=== PATIENT | male | born 1955 | race Caucasian/White ===

== ENCOUNTER → 2024-05-01 | Outpatient (CLI) | payer OTHER, SELFPAY ==
[2024-05-01 13:38] LABS: Albumin, Serum 4.2 gm/dL (3.4-4.8); Anion Gap 7 (7-16); BUN/Creatinine Ratio 23 Ratio (12-20); Blood Urea Nitrogen 28 mg/dL (9-23); Calcium 10.4 mg/dL (8.3-10.6); Calcium (Corrected) 10.4 mg/dL (8.5-10.1); Carbon Dioxide 34.5 mMol/L (20.0-31.0); Chloride 94 mMol/L (98-107); Creatinine (Component) 1.2 mg/dL (0.6-1.3); Glucose 136 mg/dL (74-106); Magnesium 2.2 mg/dL (1.6-2.6); Osmolality,Calculated 277 (275-295); Potassium 3.6 mMol/L (3.4-5.1); Sodium 135 mMol/L (136-145); eGFR > 60 See Note
== END | disposition home or self-care (01) ==
LOC: COPL 12:04
PROVIDERS: PCP Family Medicine; Referring Provider Internal Medicine Cardiovascular Disease; Visit Provider Internal Medicine Cardiovascular Disease
DX: I50.32 Chronic diastolic (congestive) heart failure (principal)
CPT/HCPCS: 36415; 80069; 83735

== ENCOUNTER → 2024-05-15 | Outpatient (CLI) | payer OTHER, SELFPAY ==
[2024-05-15 13:58] LABS: Glucose Estimated Average 157 mg/dL (80-131); Hemoglobin A1C 7.1 % Hgb (4.8-6.0)
[2024-05-15 15:06] LABS: Creatinine MALB Rnd Ur 239 mg/dL (30-125)
[2024-05-15 15:07] LABS: Microalbumin Creat Ratio 955 mg/gCrea (<30); Microalbumin, Random Urine 2283 mg/L (0-300)
== END | disposition home or self-care (01) ==
LOC: SLAB 12:43
PROVIDERS: PCP Nurse Practitioner Family; Referring Provider Nurse Practitioner Family; Visit Provider Nurse Practitioner Family
DX: E11.21 Type 2 diabetes mellitus with diabetic nephropathy (principal)
CPT/HCPCS: 36415; 82043; 82570; 83036

== ENCOUNTER 2024-05-16 09:04 | Day surgery (SDC) | payer OTHER, SELFPAY ==
--- NOTE | 2024-05-15 00:01 | EKG_ITS ---
[facility] Test Date: 2024-05-15 Pat Name: GABI LOPES Department: Room: - Gender: Male [employer]: ADE : 1955 Requested By: Tucker Harrington Order Number: [id number] Reading MD: Tucker Harrington Measurements Intervals [place] Rate: 65 P: MD: QRS: -4 QRSD: 105 T: -75 QT: 435 QTc: 452 Interpretive Statements INCOMPLETE RIGHT BUNDLE BRANCH BLOCK ST DEVIATION AND MODERATE T-WAVE ABNORMALITY, CONSIDER LATERAL ISCHEMIA No previous ECG available for comparison [id number]
[2024-05-15 13:47] LABS: Basophils # (Auto) 0.1 Thou/mm3 (0.0-0.2); Basophils % (Auto) 1 % (0-2.5); Eosinophils # (Auto) 0.1 Thou/mm3 (0.0-0.5); Eosinophils % (Auto) 1 % (0-10); Hematocrit 43.8 % (41.0-53.0); Hemoglobin 14.4 g/dL (13.5-16.0); Immature Granulocytes % (Auto) 0 % (0-0); Immature Granulocytes Auto 0.01 Thou/mm3 (0.00-0.00); Lymphocytes # (Auto) 2.2 Thou/mm3 (1.0-4.8); Lymphocytes % (Auto) 27 % (10-50); Mean Corpuscular HGB Conc 32.9 g/dl (31.0-37.0); Mean Corpuscular Hemoglobin 33.7 pg (25.0-35.0); Mean Corpuscular Volume 103 fL (80-100); Monocytes # (Auto) 0.5 Thou/mm3 (0.0-0.8); Monocytes % (Auto) 6 % (0-12); Neutrophils # (Auto) 5.2 Thou/mm3 (1.8-7.7); Neutrophils % (Auto) 65 % (37-80); Nucleated Red Blood Cell % 0 /100 WBC (0); Platelet Count 146 Thou/mm3 (140-440); RDW Standard Deviation 51.7 fL (35.1-43.9); Red Blood Count 4.27 Miln/mm3 (4.50-5.90); White Blood Count 8.1 Thou/mm3 (3.8-10.6)
[2024-05-15 14:03] LABS: Anion Gap 7 (7-16); BUN/Creatinine Ratio 16 Ratio (12-20); Blood Urea Nitrogen 19 mg/dL (9-23); Carbon Dioxide 30.3 mMol/L (20.0-31.0); Chloride 106 mMol/L (98-107); Creatinine (Component) 1.2 mg/dL (0.6-1.3); Glucose 116 mg/dL (74-106); Osmolality,Calculated 288 (275-295); Potassium 3.7 mMol/L (3.4-5.1); Sodium 143 mMol/L (136-145); eGFR > 60 See Note
[2024-05-15 14:07] LABS: INR 1.1 (0.9-1.3); Partial Thromboplastin Time 26.4 Seconds (22.0-36.0); Prothrombin Time 11.7 Seconds (9.0-12.2)
[2024-05-16] VITALS (11 sets, daily range): BP systolic 119–151; BP diastolic 68–94; PULSE 35–58; RESP 16–17; TEMP 36.4–36.8; O2SAT 92–95; BMI 48.6
--- NOTE | 2024-05-16 15:14 | PC.NURSE ---
FEMORAL SHEATH (VENOUS ACCESS) TO THE RIGHT GROIN AREA REMOVED AT 1514. MANUAL PRESSURE APPLIED FOR ABOUT 21 MINUTES (15:35)( MINUTES UNTIL HEMOSTASIS ACHIEVED. PATIENT TOLERATED PROCEDURE WELL WITHOUT COMPLICATIONS.1 SURGICAL SITE ASYMPTOMATIC, NO ACTIVE BLEEDING, NO HEMATOMA NOTED ON RIGHT GROIN AREA. RIGHT FEMORAL PULSE NOTED WITH NO CHANGES IN STRENGHT AND QUALITY, RIGHT DORSALIS PEDIS PULSE NOTED WITH NO CHANGES STRENGHT AND QUALITY. DISTAL CAPPILARRY REFILL <3 SECONDS (Baseline, Right Toes). NO NOTED CHANGES IN COLOR OR TEMPERATURE ON RIGHT LOWER EXTREMITY. PATIENT DENIES GENERAL AND LOCALIZED PAIN. NO TINGLING OR NUMBNESS FELT TO RIGHT LOWER EXTREMITY. SURGICAL SITE COVERED WITH GAUZE AND TAGADERM DRESSING, WHICH REMAIN DRY AND INTACT. WILL CONTINUE TO MONITOR.
--- NOTE | 2024-05-16 17:20 | ESOP_ITS ---
RE: GABI LOPES : 1955 DATE OF OPERATION: 05/16/2024 PROCEDURE PERFORMED: 1. Diagnostic right and left heart cardiac catheterization, selective coronary angiogram, left ventricular angiogram, selective vein bypass angiogram, CPT 97919. 2. Selective cannulation of left internal mammary artery, left internal mammary angiogram, CPT 68208. 3. Conscious sedation, 40-minute duration. 4. Ultrasound-guided access of right femoral artery and femoral vein. 5. Iliofemoral angiogram followed by angioseal deployment. 6. Aortic root angiogram. DIAGNOSIS: Coronary artery disease, status post bypass graft surgery, ischemic cardiomyopathy, congestive heart failure, and abnormal nuclear stress test, recurrent angina. HISTORY AND INDICATIONS: The patient is a 69-year-old male with history of CAD status post bypass graft surgery more than 21 years ago, chronic atrial fibrillation, congestive heart failure, and a history of pulmonary emboli with increased right heart pressure, having significant shortness of breath on minimal exertion and chest tightness. Cardiac stress and nuclear scan is abnormal hence right and left heart cardiac catheterization, coronary angiogram, bypass graft angiogram recommended for further evaluation to determine if he is a candidate for PCI intervention. DESCRIPTION OF PROCEDURE: The patient was brought to cardiac catheterization lab where he was given conscious sedation 2 mg of Versed and 50 mcg of fentanyl. Right femoral approach was taken. Right femoral artery was cannulated by micropuncture technique and a 6-Yemeni sheath introduced. femoral vein was cannulated by ultrasound guidance as well and a 7-Yemeni sheath introduced. Right heart catheterization was performed with swan leanne 7 f catheter. Right heart pressure was measured. Left heart catheterization was performed with 5-Yemeni pigtail catheter. LV angiogram was performed subsequently, aortic root angiogram performed. Subsequently, selective right and left coronary angiogram performed using Pratik l catheter. Left coronary angiogram performed by JL5 diagnostic catheter. FR4_ diagnostic catheter was used to perform right coronary angiogram. LIMA_ diagnostic catheter was used to perform right coronary artery bypass graft angiogram, left coronary artery bypass graft angiogram. Subsequently, a ORTIZ 5-Yemeni catheter was used to cannulate the left mammary artery and ORTIZ angiogram performed. Subsequently, the catheter was used to perform right subclavian and internal mammary angiogram. Ileofemoral angiogram performed and AngioSeal was deployed successfully. The patient tolerated the procedure well, no complications. Cardiac catheterization showed following findings: The right heart pressure is as follows: RA pressure is elevated at 23 mmHg, RV pressure 41 systolic, 20 mmHg diastolic, EDP is 20, pulmonary artery wedge pressure mean 23 mmHg, V wave 31, A wave 23. Pulmonary artery pressure is 45/24, mean 30 mmHg. LV pressure is 100/22, EDP 25, aortic pressure 94/60, no gradient across the aortic valve. Left ventricular angiogram showed inferior_ hypokinesis ejection fraction of 45% to 50% with [id number] global hypokinesis. Coronary angiogram showed following findings: The right coronary artery is dominant, occluded after the RV branch mid segment, distal vessel is filling via collateral. There is also a large Rv branch_ branch. Left coronary system: Left main coronary artery is normal. Left anterior descending artery is occluded after the _ diagonal branch and first septal branch and extensive collaterals are giving from these branches. Circumflex artery gives of small obtuse marginal branch, but subsequently is totally occluded. There is a vein graft to the left circumflex artery distal vessel appears to be widely patent. Vein graft to the RCA is completely occluded. Left internal mammary artery not matured. It is completely occluded, not going to LAD. SUMMARY OF FINDINGS: 1. Ischemic cardiomyopathy mild to moderate LV dysfunction, EF of 45%. 2. Severe triple vessel coronary artery disease, total occlusion of the mid RCA, mid LAD and mid circumflex artery, extensive collateral network and left coronary system. Only one vein graft is patent. Vein graft to circumflex artery, distal circumflex artery is normal. ORTIZ to LAD did not mature and is not patent. RECOMMENDATIONS: The patient does have elevated right heart pressure. Recommend increasing diuretic therapy. The patient appears to have bradycardia with atrial fibrillation, recommended discontinuing atenolol since his heart rate is below 40s. Continue spironolactone 25 mg daily, Metolazone 5 mg daily, atorvastatin 20 mg daily, and also ARB and Entresto. Short-term prognosis is fair._ long-term prognosis is poor. The patient is not a candidate for further surgery or PCI intervention. cc: Tucker Cervantes MD DT: 15:27:06 TT: 16:55:00 Ref: [id number] - TID: [id number] MTDD
== END 2024-05-16 17:40 | disposition home or self-care (01) ==
PROVIDERS: PCP Family Medicine; Referring Provider Internal Medicine Cardiovascular Disease; Visit Provider Internal Medicine Cardiovascular Disease
PROC: (CPT 93461; principal; 2024-05-16 11:30)
DX: I25.118 Atherosclerotic heart disease of native coronary artery with other forms of angina pectoris (principal); I25.5 Ischemic cardiomyopathy; I25.82 Chronic total occlusion of coronary artery; I48.20 Chronic atrial fibrillation, unspecified; Z86.711 Personal history of pulmonary embolism; Z95.1 Presence of aortocoronary bypass graft; Z01.810 Encounter for preprocedural cardiovascular examination; I11.0 Hypertensive heart disease with heart failure; E78.5 Hyperlipidemia, unspecified; I50.32 Chronic diastolic (congestive) heart failure; I48.21 Permanent atrial fibrillation
CPT/HCPCS: 93461; 36216; G0278; 36415; 80048; 85025; 85610; 85730; 93005; 99152; 99153; A4649; C1769; J0171; J1643; J1940; J2250; J2310; J3010; J3490; Q9967; J1644

== ENCOUNTER → 2024-06-19 | Outpatient (CLI) | payer OTHER, SELFPAY ==
[2024-06-19 15:59] LABS: Albumin, Serum 4.2 gm/dL (3.4-4.8); Anion Gap 9 (7-16); BUN/Creatinine Ratio 16 Ratio (12-20); Blood Urea Nitrogen 23 mg/dL (9-23); Calcium 9.8 mg/dL (8.3-10.6); Calcium (Corrected) 9.8 mg/dL (8.5-10.1); Carbon Dioxide 33.2 mMol/L (20.0-31.0); Chloride 92 mMol/L (98-107); Creatinine (Component) 1.4 mg/dL (0.6-1.3); Glucose 118 mg/dL (74-106); Osmolality,Calculated 272 (275-295); Phosphorous 3.2 mg/dL (2.4-5.1); Potassium 3.6 mMol/L (3.4-5.1); Sodium 134 mMol/L (136-145); eGFR 54 See Note
== END | disposition home or self-care (01) ==
LOC: COPL 14:37
PROVIDERS: PCP Family Medicine; Referring Provider Internal Medicine Cardiovascular Disease; Visit Provider Internal Medicine Cardiovascular Disease
DX: I25.110 Atherosclerotic heart disease of native coronary artery with unstable angina pectoris (principal)
CPT/HCPCS: 36415; 80069

== ENCOUNTER → 2024-07-17 | Outpatient (CLI) | payer OTHER, SELFPAY ==
[2024-07-17 15:45] LABS: Anion Gap 9 (7-16); BUN/Creatinine Ratio 13 Ratio (12-20); Blood Urea Nitrogen 25 mg/dL (9-23); Calcium 9.6 mg/dL (8.3-10.6); Carbon Dioxide 32.4 mMol/L (20.0-31.0); Chloride 93 mMol/L (98-107); Creatinine (Component) 1.9 mg/dL (0.6-1.3); Glucose 117 mg/dL (74-106); Osmolality,Calculated 273 (275-295); Phosphorous 3.4 mg/dL (2.4-5.1); Potassium 3.8 mMol/L (3.4-5.1); Sodium 134 mMol/L (136-145); eGFR 37 See Note
[2024-07-17 15:46] LABS: Albumin, Serum 4.4 gm/dL (3.4-4.8); Calcium (Corrected) 9.6 mg/dL (8.5-10.1)
== END | disposition home or self-care (01) ==
LOC: COPL 14:08
PROVIDERS: PCP Family Medicine; Referring Provider Internal Medicine Cardiovascular Disease; Visit Provider Internal Medicine Cardiovascular Disease
DX: I89.0 Lymphedema, not elsewhere classified (principal); I11.9 Hypertensive heart disease without heart failure; I48.21 Permanent atrial fibrillation; Z95.1 Presence of aortocoronary bypass graft
CPT/HCPCS: 36415; 80069

== ENCOUNTER → 2024-08-17 | Outpatient (CLI) | payer OTHER, SELFPAY ==
[2024-08-17 10:38] LABS: Glucose Estimated Average 146 mg/dL (80-131); Hemoglobin A1C 6.7 % Hgb (4.8-6.0)
[2024-08-17 12:04] LABS: Creatinine MALB Rnd Ur > 245 mg/dL (30-125); Microalbumin Creat Ratio 53 mg/gCrea (<30); Microalbumin, Random Urine 132 mg/L (0-300)
== END | disposition home or self-care (01) ==
LOC: COPL 09:53
PROVIDERS: PCP Family Medicine; Referring Provider Nurse Practitioner Family; Visit Provider Nurse Practitioner Family
DX: E11.21 Type 2 diabetes mellitus with diabetic nephropathy (principal)
CPT/HCPCS: 36415; 82043; 82570; 83036

== ENCOUNTER → 2024-10-11 | Outpatient (CLI) | payer OTHER, SELFPAY ==
[2024-10-11 18:01] LABS: Albumin, Serum 4.1 gm/dL (3.4-4.8); Anion Gap 10 (7-16); BUN/Creatinine Ratio 13 Ratio (12-20); Blood Urea Nitrogen 16 mg/dL (9-23); Calcium 9.6 mg/dL (8.3-10.6); Calcium (Corrected) 9.6 mg/dL (8.5-10.1); Carbon Dioxide 32.9 mMol/L (20.0-31.0); Chloride 99 mMol/L (98-107); Creatinine (Component) 1.2 mg/dL (0.6-1.3); Glucose 128 mg/dL (74-106); Osmolality,Calculated 286 (275-295); Phosphorous 2.8 mg/dL (2.4-5.1); Potassium 3.3 mMol/L (3.4-5.1); Sodium 142 mMol/L (136-145); eGFR > 60 See Note
== END | disposition home or self-care (01) ==
LOC: COPL 16:15
PROVIDERS: PCP Family Medicine; Referring Provider Internal Medicine Cardiovascular Disease; Visit Provider Internal Medicine Cardiovascular Disease
DX: I50.32 Chronic diastolic (congestive) heart failure (principal)
CPT/HCPCS: 36415; 80069

== ENCOUNTER → 2024-12-20 | Outpatient (CLI) | payer OTHER, SELFPAY ==
[2024-12-20 09:41] LABS: Basophils # (Auto) 0.1 Thou/mm3 (0.0-0.2); Basophils % (Auto) 1 % (0-2.5); Eosinophils # (Auto) 0.1 Thou/mm3 (0.0-0.5); Eosinophils % (Auto) 1 % (0-10); Hematocrit 51.5 % (41.0-53.0); Hemoglobin 17.4 g/dL (13.5-16.0); Immature Granulocytes Auto 0.01 Thou/mm3 (0.00-0.00); Lymphocytes # (Auto) 2.0 Thou/mm3 (1.0-4.8); Lymphocytes % (Auto) 30 % (10-50); Mean Corpuscular HGB Conc 33.8 g/dl (31.0-37.0); Mean Corpuscular Hemoglobin 32.2 pg (25.0-35.0); Mean Corpuscular Volume 95 fL (80-100); Monocytes # (Auto) 0.4 Thou/mm3 (0.0-0.8); Monocytes % (Auto) 6 % (0-12); Neutrophils # (Auto) 4.0 Thou/mm3 (1.8-7.7); Neutrophils % (Auto) 61 % (37-80); Nucleated Red Blood Cell # 0.00 Thou/mm3 (0.00-0.00); Nucleated Red Blood Cell % 0 /100 WBC (0); Platelet Count 156 Thou/mm3 (140-440); RDW Standard Deviation 49.6 fL (35.1-43.9); Red Blood Count 5.41 Miln/mm3 (4.50-5.90); White Blood Count 6.6 Thou/mm3 (3.8-10.6)
[2024-12-20 09:54] LABS: Glucose Estimated Average 160 mg/dL (80-131); Hemoglobin A1C 7.2 % Hgb (4.8-6.0)
[2024-12-20 10:03] LABS: Prostate Specific Antigen 0.27 ng/mL (0-4.00)
[2024-12-20 10:12] LABS: Alanine Aminotransferase 24 U/L (10-49); Albumin, Serum 4.1 gm/dL (3.4-4.8); Albumin/Globulin Ratio 1.6 (1.2-2.2); Alkaline Phosphatase 55 U/L (46-116); Anion Gap 12 (7-16); Aspartate Amino Transferase 31 U/L (0-34); BUN/Creatinine Ratio 13 Ratio (12-20); Bilirubin,Total 1.2 mg/dL (0.3-1.2); Blood Urea Nitrogen 15 mg/dL (9-23); Calcium 9.5 mg/dL (8.3-10.6); Calcium (Corrected) 9.5 mg/dL (8.5-10.1); Carbon Dioxide 30.3 mMol/L (20.0-31.0); Cardiac Risk Estimate 4.6 RATIO (4.0-6.7); Chloride 96 mMol/L (98-107); Cholesterol 153 mg/dL (132-200); Creatinine (Component) 1.2 mg/dL (0.6-1.3); Globulin 2.6 gm/dL (2.3-3.5); Glucose 154 mg/dL (74-106); HDL Cholesterol 33 mg/dL (40-60); LDL Cholesterol,Calculated 99 mg/dL (0-130); Osmolality,Calculated 279 (275-295); Phosphorous 2.7 mg/dL (2.4-5.1); Potassium 3.0 mMol/L (3.4-5.1); Sodium 138 mMol/L (136-145); Thyroid Stimulating Hormone 2.75 uIU/mL (0.55-4.78); Total Protein 6.7 gm/dL (5.7-8.2); Triglycerides 103 mg/dL (30-150); Uric Acid 7.5 mg/dL (3.7-9.2); eGFR > 60 See Note
== END | disposition home or self-care (01) ==
PROVIDERS: PCP Family Medicine; Referring Provider Nurse Practitioner Family; Visit Provider Nurse Practitioner Family
DX: Z00.00 Encounter for general adult medical examination without abnormal findings (principal); M10.00 Idiopathic gout, unspecified site; I10 Essential (primary) hypertension; E78.2 Mixed hyperlipidemia; E11.9 Type 2 diabetes mellitus without complications
CPT/HCPCS: 36415; 80053; 80061; 83036; 84100; 84153; 84443; 84550; 85025

== ENCOUNTER → 2025-03-09 | Outpatient (CLI) | payer OTHER, SELFPAY ==
[2025-03-09 14:44] LABS: Potassium 3.0 mMol/L (3.4-5.1)
== END | disposition home or self-care (01) ==
LOC: COPL 13:51
PROVIDERS: PCP Nurse Practitioner Family; Referring Provider Nurse Practitioner Family; Visit Provider Nurse Practitioner Family
DX: E87.6 Hypokalemia (principal)
CPT/HCPCS: 36415; 84132

== ENCOUNTER → 2025-03-21 | Outpatient (CLI) | payer OTHER, SELFPAY ==
[2025-03-21 15:27] LABS: Glucose Estimated Average 148 mg/dL (80-131); Hemoglobin A1C 6.8 % Hgb (4.8-6.0)
[2025-03-21 15:29] LABS: Potassium 3.2 mMol/L (3.4-5.1)
== END | disposition home or self-care (01) ==
LOC: COPL 14:53
PROVIDERS: PCP Family Medicine; Referring Provider Nurse Practitioner Family; Visit Provider Nurse Practitioner Family
DX: E87.6 Hypokalemia (principal); E11.9 Type 2 diabetes mellitus without complications
CPT/HCPCS: 36415; 83036; 84132

== ENCOUNTER → 2025-05-02 | Outpatient (CLI) | payer OTHER, SELFPAY ==
[2025-05-02 14:08] LABS: Albumin, Serum 4.5 gm/dL (3.4-4.8); Anion Gap 9 (7-16); BUN/Creatinine Ratio 10 Ratio (12-20); Blood Urea Nitrogen 11 mg/dL (9-23); Calcium 10.1 mg/dL (8.3-10.6); Calcium (Corrected) 10.1 mg/dL (8.5-10.1); Carbon Dioxide 32.7 mMol/L (20.0-31.0); Chloride 99 mMol/L (98-107); Creatinine (Component) 1.1 mg/dL (0.6-1.3); Glucose 157 mg/dL (74-106); Osmolality,Calculated 283 (275-295); Phosphorous 2.6 mg/dL (2.4-5.1); Potassium 3.7 mMol/L (3.4-5.1); Sodium 141 mMol/L (136-145); eGFR > 60 See Note
== END | disposition home or self-care (01) ==
LOC: COPL 12:45
PROVIDERS: PCP Internal Medicine Cardiovascular Disease; Referring Provider Internal Medicine Cardiovascular Disease; Visit Provider Internal Medicine Cardiovascular Disease
DX: I50.32 Chronic diastolic (congestive) heart failure (principal)
CPT/HCPCS: 36415; 80069